=== PATIENT | female | born 1975 | race Two or more races ===

== ENCOUNTER 2019-04-07 16:55 | Inpatient (IN) | payer SELFPAY ==
[2019-04-07] MEDS ORDERED: Nalbuphine 10 MG/1 ML Vial IVPUSH PRN (17:49)
[2019-04-07] MEDS ORDERED: Lidocaine 1% 50 ML MDV INJECT ONE (17:49)
[2019-04-07] MEDS ORDERED: Sodium Chloride 0.9% 10 ML Syringe FLUSH PRN (17:49)
[2019-04-07] MEDS ORDERED: Oxytocin/Lactated Ringers 10 UNIT/1,000 ML BAG IV SCH ×2 (18:00)
[2019-04-07] MEDS ORDERED: Lactated Ringers 1,000 ML ONE (18:11)
[2019-04-07] MEDS ORDERED: Ampicillin 2 GM in Sodium Chloride 0.9% 100 ML IV ONE (18:30)
[2019-04-07] MEDS: Lactated Ringers 1,000 ML IV SCH ×2 (19:54→23:32)
--- NOTE | 2019-04-07 20:24 | PCM.LDHP ---
<Miranda Hylton - Last Filed: 04/07/19 21:40> L&D History of Present Illness - General Date of Service: 04/07/19 Admit Problem/Dx: Patient Status Order with Admit Dx/Problem 04/07/19 17:30 Patient Status [ADT] Routine Admission Diagnosis/Problem Admission Diagnosis/Problem Source of Information: Patient, Family History Limitations: Reports: No Limitations, Language Barrier - History of Present Illness Introduction:: Patient is a Welsh speaking 44 year old O+ GBS + at 39-1 weeks gestational age with no active medical conditions and normal course who presents today for evaluation of vaginal bleeding. Patient noted some bleeding this afternoon, and used a pad, which did not soak through. However, she did note that when she went to the bathroom there was more blood. She has mild contractions that she notes are every 20 minutes apart. She also reports that she had some blurry vision while walking into the hospital, but this has occurred intermittently throughout her . She denies any headaches and reports no current changes in her vision. AGGIE is 03/14/19 based on LMP of 07/07/18 and ultrasounds done on 11/19/18. Prior to menstrual cycles were regular. Initial lab work on 09/18/18 demonstrated negative antibody screen, positive Rubella IgG, nonreactive Syphilis screen, nonreactive HBsAg, negative HIV screen and negative gonorrhea and chlamydia screen. Pap smear was normal with shift in josé miguel suggestive of bacterial vaginosis. Initial lab work on 09/18/18 demonstrated platelets of 286, 000, Hemoglobin of 14.2 g/dL and hematocrit of 40.9%. Subsequent lab work on 07/21 demonstrated platelets of 243,000 and hemoglobin of 12.2 g/dL. 1 hour GTT was elevated at 192, with subsequent 3 hour glucose of 120, 106 and 63 at 1,2 and 3 hours and a fasting glucose of 84. GBS screen was positive on 03/19/19. US on 11/19/18 demonstrated mejia IUP with anterior placenta with probable complete previa. Patient received her tetanus and flu vaccine on 02/12/19. Her blood pressure remained within normal limits during her . Weight gain was approximately 17 pounds, from 156 lbs to 173 lbs. She did note some constipation during her , which was managed with psyllium. Previous was uncomplicated with vaginal delivery of a healthy male term on 11/22/1998. The patient did not have pain management during labor. Patient does intend to breast feed and is considering if she would like an epidural or other pain management during labor. 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: 1 Other OB/BYN History: Previous of healthy term male infant on 11/22/1998 - Past Surgical History HEENT Surgical History: Reports: Other (See Below) Other HEENT Surgeries/Procedures: wears glasses but didn't bring along to hospital Social & Family History - Family History Family Medical History: Noncontributory Cardiac: Reports: Other (See Below) (CVA Father) Endocrine/Metabolic: Reports: Diabetes, type II (Father) - Tobacco Use Smoking Status *Q: Never Smoker Second Hand Smoke Exposure: No - Tobacco Core Measures Tobacco Use/Smoking Within Last 30 Days: No - Alcohol Use Alcohol Use in Last Twelve Months: No - Recreational Drug Use Recreational Drug Use: No - Living Situation & Occupation Living situation: Reports: ( Daljit) Occupation: Unemployed H&P Review of Systems - Review of Systems: Review Of Systems: See Below General: Reports: No Symptoms HEENT: Reports: No Symptoms Pulmonary: Reports: No Symptoms Cardiovascular: Reports: No Symptoms Gastrointestinal: Reports: Constipation Genitourinary: Reports: No Symptoms Musculoskeletal: Reports: No Symptoms Skin: Reports: No Symptoms Psychiatric: Reports: No Symptoms Neurological: Reports: No Symptoms L&D Exam - Exam Exam: See Below - Vital Signs Vital Signs: Last Vital Signs Temp 98.3 F 04/07/19 17:49 Pulse 78 04/07/19 17:49 Resp 14 04/07/19 17:49 BP 119/60 04/07/19 17:49 Pulse Ox Weight: 80.286 kg - OB Specific Contraction Frequency (min): 20 Contraction Intensity: Mild Movement: Active Heart Tones: Present Presentation: Vertex - Espinal Score Espinal Score Cervix Position: Posterior Espinal Score Effacement: 51-70% Espinal Score Dilation: 1-2 cm - Exam General: Alert, Oriented HEENT: Conjunctiva Clear, EOMI, Hearing Intact, Nares Patent Neck: Supple, Trachea Midline Lungs: Clear to Auscultation, Normal Respiratory Effort Cardiovascular: Regular Rate, Regular Rhythm GI/Abdominal Exam: Normal Bowel Sounds, Soft Back Exam: Normal Inspection Extremities: Normal Inspection, Non-Tender, No Pedal Edema Skin: Warm, Dry, Intact DTR: 1+: Patella (L), Patella (R) Psychiatric: Alert, Normal Affect, Normal Mood - Patient Data Lab Results Last 24 hrs: Laboratory Results - last 24 hr 04/07/19 Range/Units 18:10 WBC 13.65 H (3.98-10.04) K/mm3 RBC 3.79 L (3.98-5.22) M/mm3 Hgb 11.6 (11.2-15.7) gm/dl Hct 33.8 L (34.1-44.9) % MCV 89.2 (79.4-94.8) fl MCH 30.6 (25.6-32.2) pg MCHC 34.3 (32.2-35.5) g/dl RDW Std Deviation 41.8 (36.4-46.3) fL Plt Count 205 (182-369) K/mm3 MPV 10.3 (9.4-12.3) fl Neut % (Auto) 76.6 H (34.0-71.1) % Lymph % (Auto) 13.8 L (19.3-51.7) % [place] % (Auto) 9.3 (4.7-12.5) % Eos % (Auto) 0.2 L (0.7-5.8) Baso % (Auto) 0.1 (0.1-1.2) % Neut # (Auto) 10.44 H (1.56-6.13) K/mm3 Lymph # (Auto) 1.89 (1.18-3.74) K/mm3 [place] # (Auto) 1.27 H (0.24-0.36) K/mm3 Eos # (Auto) 0.03 L (0.04-0.36) K/mm3 Baso # (Auto) 0.02 (0.01-0.08) K/mm3 Manual Slide Review Abnormal smear Result Diagrams: 04/07/19 18:10 - Problem List (1) with 39 completed weeks gestation SNOMED Code(s): 73074546 ICD Code: Z3A.39 - 39 WEEKS GESTATION OF Status: Acute Current Visit: Yes Problem List Initiated/Reviewed/Updated: Yes Orders Last 24hrs: Active Orders 24 hr Category Date Time Status Patient Status [ADT] Routine ADT 04/07/19 17:30 Active Activity as Tolerated [RC] PFP Care 04/07/19 17:49 Active Communication Order [RC] ASDIRECTED Care 04/07/19 17:49 Active Heart Tones [RC] ASDIRECTED Care 04/07/19 17:50 Active Non Stress Test [RC] PER UNIT ROUTINE Care 04/07/19 17:49 Active Notify Provider [RC] PFP Care 04/07/19 17:49 Active Notify Provider [RC] PRN Care 04/07/19 17:49 Active Peripheral IV Care [RC] . DIRECTED Care 04/07/19 17:50 Active Pump Management, Intrathecal [RC] ASDIRECTED Care 04/07/19 17:51 Active Urinary Catheter Assessment [RC] ASDIRECTED Care 04/07/19 17:49 Active Vital Signs [RC] PER UNIT ROUTINE Care 04/07/19 17:49 Active Regular Diet [DIET] Diet 04/07/19 Dinner Active RAPID PLASMA REAGIN,RPR [CHEM] Routine Lab 04/07/19 18:10 Received TYPE AND SCREEN [BBK] Stat Lab 04/07/19 18:10 Received Ampicillin 1 gm Med 04/07/19 22:30 Active Sodium Chloride 0.9% [Normal Saline] 100 ml IV Q4H Lactated Ringers [Ringers, Lactated] 1,000 ml Med 04/07/19 18:00 Active IV ASDIRECTED Nalbuphine [Nubain] Med 04/07/19 17:49 Active 10 mg IVPUSH Q2H PRN Oxytocin/Lactated Ringers [Pitocin in LR 10 Units/1,000 Med 04/07/19 18:00 Active ML] 10 unit in 1,000 ml IV .CONTINUOUS Oxytocin/Lactated Ringers [Pitocin in LR 10 Units/1,000 Med 04/07/19 18:00 Active ML] 10 unit in 1,000 ml IV TITRATE Sodium Chloride 0.9% [Saline Flush] Med 04/07/19 17:49 Active 10 ml FLUSH ASDIRECTED PRN Electronic Heart Tones Ext w TOCO [WOMSER] Oth 04/07/19 17:49 Ordered Routine Electronic Heart Tones Internal [WOMSER] Per Unit Oth 04/07/19 17:49 Ordered Routine Peripheral IV Insertion Adult [OM.PC] Routine Oth 04/07/19 17:49 Ordered Resuscitation Status Routine Resus Stat 04/07/19 17:49 Ordered Medication Orders Ampicillin Sodium 1 gm/ Sodium (Chloride) 100 mls @ 200 mls/hr IV Q4H BRITNEY Lactated Ringer's (Ringers, Lactated) 1,000 mls @ 100 mls/hr IV ASDIRECTED BRITNEY Last Admin: 04/07/19 19:54 Dose: 100 mls/hr Oxytocin/Lactated Ringer's (Pitocin In Lr 10 Units/1,000 Ml) 10 unit in 1,000 mls @ 12 mls/hr IV TITRATE BRITNEY; Protocol Oxytocin/Lactated Ringer's (Pitocin In Lr 10 Units/1,000 Ml) 10 unit in 1,000 mls @ 500 mls/hr IV .CONTINUOUS BRITNEY Nalbuphine HCl (Nubain) 10 mg IVPUSH Q2H PRN PRN Reason: Pain Sodium Chloride (Saline Flush) 10 ml FLUSH ASDIRECTED PRN PRN Reason: Keep Vein Open Assessment/Plan Comment:: Assessment: * 44 year old Welsh speaking O+ GBS+ female with no active medical conditions and uncomplicated course who presents for mild vaginal bleeding and contractions. Plan: * Antibiotics for GBS+ * Continue to monitor patient * Augment with Pitocin if indicated * Patient is considering if she would like an epidural at this time. <Jennifer Vang - Last Filed: 04/08/19 00:45> L&D History of Present Illness - General Admit Problem/Dx: Patient Status Order with Admit Dx/Problem 04/07/19 17:30 Patient Status [ADT] Routine Admission Diagnosis/Problem Admission Diagnosis/Problem L&D Exam - Vital Signs Vital Signs: Last Vital Signs Temp 36.8 C 04/07/19 17:49 Pulse 78 04/07/19 17:49 Resp 14 04/07/19 17:49 BP 119/60 04/07/19 17:49 Pulse Ox - Patient Data Lab Results Last 24 hrs: Laboratory Results - last 24 hr 04/07/19 04/07/19 Range/Units 18:10 18:10 WBC 13.65 H (3.98-10.04) K/mm3 RBC 3.79 L (3.98-5.22) M/mm3 Hgb 11.6 (11.2-15.7) gm/dl Hct 33.8 L (34.1-44.9) % MCV 89.2 (79.4-94.8) fl MCH 30.6 (25.6-32.2) pg MCHC 34.3 (32.2-35.5) g/dl RDW Std Deviation 41.8 (36.4-46.3) fL Plt Count 205 (182-369) K/mm3 MPV 10.3 (9.4-12.3) fl Neut % (Auto) 76.6 H (34.0-71.1) % Lymph % (Auto) 13.8 L (19.3-51.7) % [place] % (Auto) 9.3 (4.7-12.5) % Eos % (Auto) 0.2 L (0.7-5.8) Baso % (Auto) 0.1 (0.1-1.2) % Neut # (Auto) 10.44 H (1.56-6.13) K/mm3 Lymph # (Auto) 1.89 (1.18-3.74) K/mm3 [place] # (Auto) 1.27 H (0.24-0.36) K/mm3 Eos # (Auto) 0.03 L (0.04-0.36) K/mm3 Baso # (Auto) 0.02 (0.01-0.08) K/mm3 Manual Slide Review Abnormal smear Blood Type O POSITIVE Gel Antibody Screen Negative Result Diagrams: 04/07/19 18:10 Orders Last 24hrs: Active Orders 24 hr Category Date Time Status Patient Status [ADT] Routine ADT 04/07/19 17:30 Active Activity as Tolerated [RC] PFP Care 04/07/19 17:49 Active Communication Order [RC] ASDIRECTED Care 04/07/19 17:49 Active Heart Tones [RC] ASDIRECTED Care 04/07/19 17:50 Active Non Stress Test [RC] PER UNIT ROUTINE Care 04/07/19 17:49 Active Notify Provider [RC] PFP Care 04/07/19 17:49 Active Notify Provider [RC] PRN Care 04/07/19 17:49 Active Peripheral IV Care [RC] . DIRECTED Care 04/07/19 17:50 Active Pump Management, Intrathecal [RC] ASDIRECTED Care 04/07/19 17:51 Active Urinary Catheter Assessment [RC] ASDIRECTED Care 04/07/19 17:49 Active Vital Signs [RC] PER UNIT ROUTINE Care 04/07/19 17:49 Active Regular Diet [DIET] Diet 04/07/19 Dinner Active OB Ltd 1 or More Fetus [US] Routine Exams 04/07/19 22:12 Taken RAPID PLASMA REAGIN,RPR [CHEM] Routine Lab 04/07/19 18:10 Received Ampicillin 1 gm Med 04/07/19 22:30 Active Sodium Chloride 0.9% [Normal Saline] 100 ml IV Q4H Lactated Ringers [Ringers, Lactated] 1,000 ml Med 04/07/19 18:00 Active IV ASDIRECTED Nalbuphine [Nubain] Med 04/07/19 17:49 Active 10 mg IVPUSH Q2H PRN Oxytocin/Lactated Ringers [Pitocin in LR 10 Units/1,000 Med 04/07/19 18:00 Active ML] 10 unit in 1,000 ml IV .CONTINUOUS Oxytocin/Lactated Ringers [Pitocin in LR 10 Units/1,000 Med 04/07/19 18:00 Active ML] 10 unit in 1,000 ml IV TITRATE Sodium Chloride 0.9% [Saline Flush] Med 04/07/19 17:49 Active 10 ml FLUSH ASDIRECTED PRN Electronic Heart Tones Ext w TOCO [WOMSER] Oth 04/07/19 17:49 Ordered Routine Electronic Heart Tones Internal [WOMSER] Per Unit Oth 04/07/19 17:49 Ordered Routine Peripheral IV Insertion Adult [OM.PC] Routine Oth 04/07/19 17:49 Ordered Resuscitation Status Routine Resus Stat 04/07/19 17:49 Ordered Medication Orders Ampicillin Sodium 1 gm/ Sodium (Chloride) 100 mls @ 200 mls/hr IV Q4H BRITNEY Last Admin: 04/07/19 23:33 Dose: 200 mls/hr Lactated Ringer's (Ringers, Lactated) 1,000 mls @ 100 mls/hr IV ASDIRECTED BRITNEY Last Admin: 04/07/19 23:32 Dose: 100 mls/hr Infusion: 04/07/19 23:32 Dose: 100 mls/hr Admin: 04/07/19 19:54 Dose: 100 mls/hr Oxytocin/Lactated Ringer's (Pitocin In Lr 10 Units/1,000 Ml) 10 unit in 1,000 mls @ 12 mls/hr IV TITRATE BRITNEY; Protocol Oxytocin/Lactated Ringer's (Pitocin In Lr 10 Units/1,000 Ml) 10 unit in 1,000 mls @ 500 mls/hr IV .CONTINUOUS BRITNEY Nalbuphine HCl (Nubain) 10 mg IVPUSH Q2H PRN PRN Reason: Pain Sodium Chloride (Saline Flush) 10 ml FLUSH ASDIRECTED PRN PRN Reason: Keep Vein Open Assessment/Plan Comment:: Ultrasound reveals normal placenta. No previa. After labor for about 2 hours with minimal cervical change, repeatative late decelerations and thick meconium decision to proceed with section
[2019-04-07] MEDS ORDERED: Ampicillin 1 GM in Sodium Chloride 0.9% 100 ML IV SCH (22:30)
[2019-04-08] MEDS ORDERED: Nalbuphine 10 MG/1 ML Vial IVPUSH PRN (00:46)
[2019-04-08] MEDS ORDERED: Citric Acid/Sodium Citrate Solution 30 ML Cup PO ONE (00:46)
[2019-04-08] MEDS ORDERED: Sodium Chloride 0.9% 10 ML Syringe FLUSH PRN (00:46)
[2019-04-08] MEDS ORDERED: Metoclopramide 10 MG/2 ML SDV IVPUSH ONE (00:46)
[2019-04-08] MEDS ORDERED: Morphine PF 10 MG/10 ML SDV ONE (00:47)
[2019-04-08] MEDS ORDERED: ceFAZolin 1 GM Vial ONE (00:51)
[2019-04-08] MEDS ORDERED: Oxytocin 10 Units/1 ML SDV ONE (00:51)
[2019-04-08] MEDS ORDERED: Bupivacaine 0.5% 30 ML SDV ONE (00:54)
[2019-04-08] MEDS ORDERED: Lactated Ringers 1,000 ML IV SCH (01:00)
[2019-04-08] MEDS ORDERED: fentaNYL 100 MCG/2 ML SDV ONE (01:42)
--- NOTE | 2019-04-08 01:59 | PCM.OPNOTE ---
- General Post-Op/Procedure Note Date of Surgery/Procedure: 04/08/19 Operative Procedure(s): primary section Findings: Viable male, weight 7#10 oz, 8/8 APGARS at 0120. Thick meconium. Normal uterus tubes and ovaries Pre Op Diagnosis: non-reassuring heart tones Post-Op Diagnosis: Same Anesthesia Technique: Spinal Primary Surgeon: Jennifer Vang Cafeteria Aide: Chester Manley Role of Cafeteria Aide: patient safety, speed of surgery Fluid Replacement, Intraop: 1,600 Output, Urine Amount: 150 EBL in mLs: 600 Complications: None Condition: Good Free Text/Narrative:: The patient was taken to the operating room where spinal anesthesia was dosed to surgical levels without difficulty. The patient was prepped and draped in the usual sterile fashion in the dorsal supine position with a leftward tilt. A Pfannenstiel skin incision was made with the scalpel and carried through to the underlying layer of fascia. The fascia was incised in the midline and extended laterally using Shearer scissors. Jolly clamps were used to elevate the superior aspect of the fascial incision, which was elevated, and the underlying rectus muscles were dissected off bluntly and using Shearer scissors. Attention was then turned to the inferior aspect of the fascial incision, which in similar fashion was grasped with Jolly clamps, elevated, and the underlying rectus muscles were dissected off bluntly and using the shearer. The rectus muscles were dissected in the midline. The peritoneum was entered bluntly; this incision was extended superiorly and inferiorly with good visualization of the bladder. The bladder blade was inserted. The vesicouterine peritoneum was identified and entered sharply using Metzenbaum scissors. This incision was extended laterally and the bladder flap was created digitally. The bladder blade was reinserted. The lower uterine segment was incised in a transverse fashion using the scalpel and with digital traction. Clear fluid was noted. The infant was subsequently delivered by flexing the head to the incision. Body and shoulders followed without difficulty. The cord was clamped and cut. 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 The placenta was delivered spontaneously intact with a three-vessel cord noted. The uterus was exteriorized and cleared of all clots and debris. The uterine incision was repaired in 2 layers using 0 monocryl. Hemostasis was visualized. Hemostasis was visualized bilaterally. The uterus was returned to the abdomen. The uterine incision was reexamined and it was noted to be hemostatic. The pelvis was copiously irrigated. The fascia was closed with 1 PDS suture, and the skin was closed with 3-0 monocryl. Sponge, lap, and instrument counts were correct x2. The patient was stable at the completion of the procedure and was subsequently transferred to the recovery room in stable condition.
--- NOTE | 2019-04-08 02:00 | PCM.PREANE ---
Preanesthetic Assessment - Anesthesia/Transfusion/Family Hx Anesthesia History: No Prior Anesthesia Transfusion History: No Prior Transfusion(s) Anesthesia/Transfusion Comment: Language barrier preventing thorough assessment of history. Assured from physician that she is "otherwise healthy." - Review of Systems General: No Symptoms Pulmonary: No Symptoms Cardiovascular: No Symptoms Gastrointestinal: No Symptoms Neurological: No Symptoms Other: Reports: None - Physical Assessment NPO Status Date: 04/07/19 (Presumed full stomach) Vital Signs: Last Vital Signs Temp 36.8 C 04/07/19 17:49 Pulse 78 04/07/19 17:49 Resp 14 04/07/19 17:49 BP 119/60 04/07/19 17:49 Pulse Ox Height: 5 ft 2 in Weight: 80.286 kg ASA Class: 1E Mental Status: Alert & Oriented x3 Dentition: Reports: Normal Dentition ROM/Head Extension: Full Lungs: Clear to Auscultation, Normal Respiratory Effort Cardiovascular: Regular Rate, Regular Rhythm - Lab Values: Laboratory Last Values WBC 13.65 K/mm3 (3.98-10.04) H 04/07/19 18:10 RBC 3.79 M/mm3 (3.98-5.22) L 04/07/19 18:10 Hgb 11.6 gm/dl (11.2-15.7) 04/07/19 18:10 Hct 33.8 % (34.1-44.9) L 04/07/19 18:10 MCV 89.2 fl (79.4-94.8) 04/07/19 18:10 MCH 30.6 pg (25.6-32.2) 04/07/19 18:10 MCHC 34.3 g/dl (32.2-35.5) 04/07/19 18:10 RDW Std Deviation 41.8 fL (36.4-46.3) 04/07/19 18:10 Plt Count 205 K/mm3 (182-369) 04/07/19 18:10 MPV 10.3 fl (9.4-12.3) 04/07/19 18:10 Neut % (Auto) 76.6 % (34.0-71.1) H 04/07/19 18:10 Lymph % (Auto) 13.8 % (19.3-51.7) L 04/07/19 18:10 [place] % (Auto) 9.3 % (4.7-12.5) 04/07/19 18:10 Eos % (Auto) 0.2 (0.7-5.8) L 04/07/19 18:10 Baso % (Auto) 0.1 % (0.1-1.2) 04/07/19 18:10 Neut # (Auto) 10.44 K/mm3 (1.56-6.13) H 04/07/19 18:10 Lymph # (Auto) 1.89 K/mm3 (1.18-3.74) 04/07/19 18:10 [place] # (Auto) 1.27 K/mm3 (0.24-0.36) H 04/07/19 18:10 Eos # (Auto) 0.03 K/mm3 (0.04-0.36) L 04/07/19 18:10 Baso # (Auto) 0.02 K/mm3 (0.01-0.08) 04/07/19 18:10 Manual Slide Review Abnormal smear 04/07/19 18:10 Blood Type O POSITIVE 04/07/19 18:10 Gel Antibody Screen Negative 04/07/19 18:10 - Allergies Allergies/Adverse Reactions: Allergies Allergy/AdvReac Type Severity Reaction Status Date / Time No Known Allergies Allergy Verified 04/07/19 17:47 - Blood Blood Available: Yes - Acknowledgements Anesthesia Type Planned: Spinal Pt an Appropriate Candidate for the Planned Anesthesia: Yes Alternatives and Risks of Anesthesia Discussed w Pt/Guardian: Yes Pt/Guardian Understands and Agrees with Anesthesia Plan: Yes PreAnesthesia Questionnaire 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: Reports: Other OB/BYN History: Previous of healthy term male infant on 11/22/1998 - Past Surgical History HEENT Surgical History: Reports: Other (See Below) Other HEENT Surgeries/Procedures: wears glasses but didn't bring along to hospital - SUBSTANCE USE Smoking Status *Q: Never Smoker Second Hand Smoke Exposure: No Recreational Drug Use History: No - HOME MEDS Home Medications: Home Meds Mv-Mn/Iron/FA/Herbal/Digestive [ One Tablet] 1 each PO DAILY 04/07/19 [ History] - CURRENT (IN HOUSE) MEDS Current Meds: Current Medications Ampicillin Sodium 1 gm/ Sodium (Chloride) 100 mls @ 200 mls/hr IV Q4H BRITNEY Last Admin: 04/07/19 23:33 Dose: 200 mls/hr Lactated Ringer's (Ringers, Lactated) 1,000 mls @ 100 mls/hr IV ASDIRECTED BRITNEY Last Admin: 04/07/19 23:32 Dose: 100 mls/hr Oxytocin/Lactated Ringer's (Pitocin In Lr 10 Units/1,000 Ml) 10 unit in 1,000 mls @ 12 mls/hr IV TITRATE BRITNEY; Protocol Oxytocin/Lactated Ringer's (Pitocin In Lr 10 Units/1,000 Ml) 10 unit in 1,000 mls @ 500 mls/hr IV .CONTINUOUS BRITNEY Lactated Ringer's (Ringers, Lactated) 1,000 mls @ 125 mls/hr IV ASDIRECTED BRITNEY Nalbuphine HCl (Nubain) 10 mg IVPUSH Q2H PRN PRN Reason: Pain Nalbuphine HCl (Nubain) 10 mg IVPUSH Q2H PRN PRN Reason: Pain Sodium Chloride (Saline Flush) 10 ml FLUSH ASDIRECTED PRN PRN Reason: Keep Vein Open Sodium Chloride (Saline Flush) 10 ml FLUSH ASDIRECTED PRN PRN Reason: Keep Vein Open Discontinued Medications Bupivacaine HCl (Marcaine 0.5%) Confirm Administered Dose 30 ml .ROUTE .STK-MED ONE Stop: 04/08/19 00:55 Cefazolin Sodium (Ancef) Confirm Administered Dose 2 gm .ROUTE .STK-MED ONE Stop: 04/08/19 00:52 Citric Acid/Sodium Citrate (Bicitra Solution) 30 ml PO ONETIME ONE Stop: 04/08/19 00:47 Fentanyl (Sublimaze) Confirm Administered Dose 100 mcg .ROUTE .STK-MED ONE Stop: 04/08/19 01:43 Ampicillin Sodium 2 gm/ Sodium (Chloride) 100 mls @ 200 mls/hr IV ONETIME ONE Stop: 04/07/19 18:59 Last Admin: 04/07/19 19:02 Dose: 200 mls/hr Lactated Ringer's (Ringers, Lactated) Confirm Administered Dose 1,000 mls @ as directed .ROUTE .STK-MED ONE Stop: 04/07/19 18:12 Lidocaine HCl (Xylocaine 1%) 1 ml INJECT ONETIME ONE Stop: 04/07/19 17:50 Metoclopramide HCl (Reglan) 10 mg IVPUSH ONETIME ONE Stop: 04/08/19 00:47 Morphine Sulfate (Duramorph Pf) Confirm Administered Dose 10 mg .ROUTE .STK-MED ONE Stop: 04/08/19 00:48 Oxytocin (Pitocin) Confirm Administered Dose 20 unit .ROUTE .STK-MED ONE Stop: 04/08/19 00:52
--- NOTE | 2019-04-08 02:02 | PCM.POSTAN ---
POST ANESTHESIA ASSESSMENT - MENTAL STATUS Mental Status: Alert, Oriented - VITAL SIGNS Vital Signs: Last Vital Signs Temp 36.8 C 04/07/19 17:49 Pulse 78 04/07/19 17:49 Resp 14 04/07/19 17:49 BP 119/60 04/07/19 17:49 Pulse Ox - RESPIRATORY Respiratory Status: Respiratory Rate WNL, Airway Patent, O2 Saturation Stable - CARDIOVASCULAR CV Status: Pulse Rate WNL, Blood Pressure Stable - GASTROINTESTINAL GI Status: No Symptoms - PAIN Pain Score: 0 - POST OP HYDRATION Hydration Status: Adequate & Stable - OBSERVATIONS Free Text/Narrative:: Routine transfer to PACU with handoff to nursing. VSS, SV, MUE, FAC, CTAB. No complications.
[2019-04-08] MEDS ORDERED: diphenhydrAMINE 50 MG/ML SDV IVPUSH PRN ×2 (03:41→05:14)
[2019-04-08] MEDS ORDERED: fentaNYL 100 MCG/2 ML SDV IVPUSH PRN (03:41)
[2019-04-08] MEDS ORDERED: Ondansetron 4 MG/2 ML SDV IVPUSH PRN (03:41)
[2019-04-08] MEDS ORDERED: Naloxone 0.4 MG/ML SDV IVPUSH PRN (05:14)
[2019-04-08] MEDS ORDERED: ePHEDrine 50 MG/ML SDV IVPUSH PRN (05:14)
[2019-04-08] MEDS ORDERED: Dextrose 5%-Lactated Ringers 1,000 ML IV SCH (05:14)
--- NOTE | 2019-04-08 07:35 | PCM48HPAN ---
Post Anesthesia Note - EVALUATION WITHIN 48HRS OF ANESTHETIC Vital Signs in Normal Range: Yes Patient Participated in Evaluation: Yes Respiratory Function Stable: Yes Airway Patent: Yes Cardiovascular Function Stable: Yes Hydration Status Stable: Yes Pain Control Satisfactory: Yes Nausea and Vomiting Control Satisfactory: Yes Mental Status Recovered: Yes Vital Signs: Last Vital Signs Temp 36.3 C 04/08/19 02:30 Pulse 70 04/08/19 02:30 Resp 18 04/08/19 02:30 BP 110/60 04/08/19 02:30 Pulse Ox 95 04/08/19 02:30 - COMMENTS/OBSERVATIONS Free Text/Narrative:: no anesthesia complications noted
[2019-04-08] MEDS ORDERED: Ketorolac 30 MG/ML SDV ONE ×3 (10:07→16:37)
--- NOTE | 2019-04-08 13:11 | PCM.PNPP ---
- General Info Date of Service: 04/08/19 Admission Dx/Problem (Free Text): Patient Status Order with Admit Dx/Problem 04/07/19 17:30 Patient Status [ADT] Routine Admission Diagnosis/Problem Admission Diagnosis/Problem Subjective Update: Patient is day of surgery for unplanned of a 39-1 gestational age male . Patient is doing well. She has been able to be up and walk around. She does note that she has a Mendez in place so she has not needed to use the bathroom. She has not had to move her bowels yet day. She denies any nausea or vomiting. She reports that she has had minimal pain and some vaginal bleeding. She denies any headaches or changes in vision. She did attempt to breastfeed but she reports that there was very minimal milk production. She is wondering what she can do it increase milk production. She also is wondering about cleaning the incision site. Functional Status: Reports: Pain Controlled, Tolerating Diet, Ambulating - Review of Systems General: Reports: No Symptoms HEENT: Reports: No Symptoms Pulmonary: Reports: No Symptoms Cardiovascular: Reports: No Symptoms Gastrointestinal: Reports: No Symptoms Genitourinary: Reports: No Symptoms Musculoskeletal: Reports: No Symptoms Neurological: Reports: No Symptoms Psychiatric: Reports: No Symptoms - General Info Date of Service: 04/08/19 - Patient Data Vital Signs - Most Recent: Last Vital Signs Temp 98.8 F 04/08/19 11:59 Pulse 71 04/08/19 12:02 Resp 18 04/08/19 11:59 BP 100/55 L 04/08/19 12:00 Pulse Ox 100 04/08/19 12:02 Weight - Most Recent: 80.286 kg I&O - Last 24 Hours: Intake & Output 04/07/19 04/08/19 04/08/19 22:59 06:59 14:59 Intake Total 1800 180 Output Total 340 250 Balance 1460 -70 Lab Results - Last 24 Hours: Laboratory Results - last 24 hr 04/07/19 04/07/19 Range/Units 18:10 18:10 WBC 13.65 H (3.98-10.04) K/mm3 RBC 3.79 L (3.98-5.22) M/mm3 Hgb 11.6 (11.2-15.7) gm/dl Hct 33.8 L (34.1-44.9) % MCV 89.2 (79.4-94.8) fl MCH 30.6 (25.6-32.2) pg MCHC 34.3 (32.2-35.5) g/dl RDW Std Deviation 41.8 (36.4-46.3) fL Plt Count 205 (182-369) K/mm3 MPV 10.3 (9.4-12.3) fl Neut % (Auto) 76.6 H (34.0-71.1) % Lymph % (Auto) 13.8 L (19.3-51.7) % [place] % (Auto) 9.3 (4.7-12.5) % Eos % (Auto) 0.2 L (0.7-5.8) Baso % (Auto) 0.1 (0.1-1.2) % Neut # (Auto) 10.44 H (1.56-6.13) K/mm3 Lymph # (Auto) 1.89 (1.18-3.74) K/mm3 [place] # (Auto) 1.27 H (0.24-0.36) K/mm3 Eos # (Auto) 0.03 L (0.04-0.36) K/mm3 Baso # (Auto) 0.02 (0.01-0.08) K/mm3 Manual Slide Review Abnormal smear Blood Type O POSITIVE Gel Antibody Screen Negative Med Orders - Current: Current Medications Diphenhydramine HCl (Benadryl) 25 mg IVPUSH Q6H PRN PRN Reason: Pruritis Diphenhydramine HCl (Benadryl) 25 mg IVPUSH Q6H PRN PRN Reason: Itching or Nausea Ephedrine Sulfate (Ephedrine Sulfate) 5 mg IVPUSH SEECOMMENT PRN PRN Reason: Other Fentanyl (Sublimaze) 50 mcg IVPUSH Q5M PRN PRN Reason: Pain Dextrose/Lactated Ringer's (Dextrose 5%-Lactated Ringers) 1,000 mls @ 125 mls/ hr IV ASDIRECTED [facility] Stop: 04/08/19 13:13 Last Infusion: 04/08/19 12:34 Dose: Infused Ibuprofen (Motrin) 600 mg PO Q6H PRN PRN Reason: mild pain or fever Naloxone HCl (Narcan) 0.1 mg IVPUSH SEECOMMENT PRN PRN Reason: Respiratory Depression Ondansetron HCl (Zofran) 4 mg IVPUSH ONETIME PRN PRN Reason: Nausea/Vomiting Oxycodone/Acetaminophen (Percocet 325-5 Mg) 2 tab PO Q6H PRN PRN Reason: Pain (moderate 4-6) Discontinued Medications Bupivacaine HCl (Marcaine 0.5%) Confirm Administered Dose 30 ml .ROUTE .STK-MED ONE Stop: 04/08/19 00:55 Last Admin: 04/08/19 01:16 Dose: 20 ml Cefazolin Sodium (Ancef) Confirm Administered Dose 2 gm .ROUTE .STK-MED ONE Stop: 04/08/19 00:52 Citric Acid/Sodium Citrate (Bicitra Solution) 30 ml PO ONETIME ONE Stop: 04/08/19 00:47 Fentanyl (Sublimaze) Confirm Administered Dose 100 mcg .ROUTE .STK-MED ONE Stop: 04/08/19 01:43 Ampicillin Sodium 2 gm/ Sodium (Chloride) 100 mls @ 200 mls/hr IV ONETIME ONE Stop: 04/07/19 18:59 Last Admin: 04/07/19 19:02 Dose: 200 mls/hr Ampicillin Sodium 1 gm/ Sodium (Chloride) 100 mls @ 200 mls/hr IV Q4H [facility] Last Admin: 04/07/19 23:33 Dose: 200 mls/hr Lactated Ringer's (Ringers, Lactated) 1,000 mls @ 100 mls/hr IV ASDIRECTED [facility] Last Admin: 04/07/19 23:32 Dose: 100 mls/hr Oxytocin/Lactated Ringer's (Pitocin In Lr 10 Units/1,000 Ml) 10 unit in 1,000 mls @ 12 mls/hr IV TITRATE [facility]NEY; Protocol Oxytocin/Lactated Ringer's (Pitocin In Lr 10 Units/1,000 Ml) 10 unit in 1,000 mls @ 500 mls/hr IV .CONTINUOUS [facility] Lactated Ringer's (Ringers, Lactated) Confirm Administered Dose 1,000 mls @ as directed .ROUTE .STK-MED ONE Stop: 04/07/19 18:12 Lactated Ringer's (Ringers, Lactated) 1,000 mls @ 125 mls/hr IV ASDIRECTED [facility] Ketorolac Tromethamine (Toradol) Confirm Administered Dose 30 mg .ROUTE .STK- MED ONE Stop: 04/08/19 10:08 Last Admin: 04/08/19 11:11 Dose: 30 mg Ketorolac Tromethamine (Toradol) Confirm Administered Dose 30 mg .ROUTE .STK- MED ONE Stop: 04/08/19 11:10 Last Admin: 04/08/19 11:16 Dose: Not Given Lidocaine HCl (Xylocaine 1%) 1 ml INJECT ONETIME ONE Stop: 04/07/19 17:50 Metoclopramide HCl (Reglan) 10 mg IVPUSH ONETIME ONE Stop: 04/08/19 00:47 Morphine Sulfate (Duramorph Pf) Confirm Administered Dose 10 mg .ROUTE .STK-MED ONE Stop: 04/08/19 00:48 Nalbuphine HCl (Nubain) 10 mg IVPUSH Q2H PRN PRN Reason: Pain Nalbuphine HCl (Nubain) 10 mg IVPUSH Q2H PRN PRN Reason: Pain Oxytocin (Pitocin) Confirm Administered Dose 20 unit .ROUTE .STK-MED ONE Stop: 04/08/19 00:52 Sodium Chloride (Saline Flush) 10 ml FLUSH ASDIRECTED PRN PRN Reason: Keep Vein Open Sodium Chloride (Saline Flush) 10 ml FLUSH ASDIRECTED PRN PRN Reason: Keep Vein Open - Infant Interaction Infant Disposition, : [place] to Nursery Infant Interaction: Not Applicable Feeding: Attempted ; Nursed Fair/Poor, Encouraged to Breastfeed Support Person: - Recovery Exam Fundal Tone: Firm Fundal Level: At Umbilicus Fundal Placement: Midline Lochia Amount: Scant, Small Lochia Color: Rubra/Red Perineum Description: Intact, Minimal Bruising/Swelling Episiotomy/Laceration: None Bladder Status: Indwelling Catheter in Place Urinary Elimination: Indwelling Catheter - Exam General: Alert, Oriented HEENT: Pupils Equal, EOMI Lungs: Clear to Auscultation, Normal Respiratory Effort Cardiovascular: Regular Rate, Regular Rhythm GI/Abdominal Exam: Normal Bowel Sounds, Soft, Tender (mildly tender) Extremities: Normal Inspection, Non-Tender, No Pedal Edema, Normal Capillary Refill Skin: Warm, Dry, Intact Wound/Incisions: Dressing Dry and Intact Neurological: No New Focal Deficit Psy/Mental Status: Alert, Normal Affect, Normal Mood - Problem List & Annotations (1) with 39 completed weeks gestation SNOMED Code(s): 14994204 Code(s): Z3A.39 - 39 WEEKS GESTATION OF Status: Acute Current Visit: Yes (2) Delivery by section SNOMED Code(s): 709575050 Code(s): FGM6784 - Status: Acute Current Visit: Yes (3) Language barrier SNOMED Code(s): 665156243, 377909090 Code(s): Z78.9 - OTHER SPECIFIED HEALTH STATUS Status: Acute Current Visit: Yes - Problem List Review Problem List Initiated/Reviewed/Updated: Yes - Plan Plan:: Continued monitoring Regular diet as tolerated assistance as needed Continue to assess for Lochia
[2019-04-08] MEDS: Acetaminophen/oxyCODONE 325-5 MG Tab PO PRN (22:09)
[2019-04-09] MEDS: Ibuprofen 600 MG Tab PO PRN ×2 (01:23→14:36)
[2019-04-09] MEDS ORDERED: Ammonia Inhalant Amp ONE (03:11)
[2019-04-09] MEDS: Acetaminophen/oxyCODONE 325-5 MG Tab PO PRN ×3 (05:08→22:04)
--- NOTE | 2019-04-09 08:00 | PCM.PNPP ---
- General Info Date of Service: 04/09/19 Admission Dx/Problem (Free Text): Patient Status Order with Admit Dx/Problem 04/07/19 17:30 Patient Status [ADT] Routine Admission Diagnosis/Problem Admission Diagnosis/Problem Subjective Update: Patient is day 1 post unplanned of a 39-1 gestational age male . Patient is doing well. She has been able to get up and walk around. Mendez catheter was removed and patient has been able to urinate, however the nurse reported output of about 150 mL. They did do a bladder scan, which did not demonstrate significant residual. She does say that she just went to the bathroom and it was a lot of urine. She has been drinking water. She has not yet had a bowel movement, but has been able to pass gas. Appetite has been good. Her pain has been well managed with medication. She has had minimal bleeding. She denies any headache or change in vision. She has continued to attempt to breastfeed, although she notes that her milk output has been minimal. She did discuss this with the nurse and received advice. Functional Status: Reports: Pain Controlled, Tolerating Diet, Ambulating, Urinating - Review of Systems General: Reports: No Symptoms HEENT: Reports: No Symptoms Pulmonary: Reports: No Symptoms Cardiovascular: Reports: No Symptoms Gastrointestinal: Reports: No Symptoms Genitourinary: Reports: No Symptoms Musculoskeletal: Reports: No Symptoms Skin: Reports: No Symptoms Psychiatric: Reports: No Symptoms - General Info Date of Service: 04/09/19 - Patient Data Vital Signs - Most Recent: Last Vital Signs Temp 98.8 F 04/09/19 04:08 Pulse 70 04/09/19 04:08 Resp 16 04/09/19 04:08 BP 102/51 L 04/09/19 04:08 Pulse Ox 98 04/09/19 04:08 Weight - Most Recent: 80.286 kg I&O - Last 24 Hours: Intake & Output 04/08/19 04/09/19 04/09/19 22:59 06:59 14:59 Intake Total 300 Balance 300 Lab Results - Last 24 Hours: Laboratory Results - last 24 hr 04/07/19 04/09/19 Range/Units 18:10 05:06 WBC 15.26 H (3.98-10.04) K/mm3 RBC 3.47 L (3.98-5.22) M/mm3 Hgb 10.5 L (11.2-15.7) gm/dl Hct 31.6 L (34.1-44.9) % MCV 91.1 (79.4-94.8) fl MCH 30.3 (25.6-32.2) pg MCHC 33.2 (32.2-35.5) g/dl RDW Std Deviation 43.3 (36.4-46.3) fL Plt Count 214 (182-369) K/mm3 MPV 10.0 (9.4-12.3) fl Neut % (Auto) 75.7 H (34.0-71.1) % Lymph % (Auto) 14.8 L (19.3-51.7) % [place] % (Auto) 8.5 (4.7-12.5) % Eos % (Auto) 0.3 L (0.7-5.8) Baso % (Auto) 0.2 (0.1-1.2) % Neut # (Auto) 11.54 H (1.56-6.13) K/mm3 Lymph # (Auto) 2.26 (1.18-3.74) K/mm3 [place] # (Auto) 1.30 H (0.24-0.36) K/mm3 Eos # (Auto) 0.05 (0.04-0.36) K/mm3 Baso # (Auto) 0.03 (0.01-0.08) K/mm3 RPR Non-reactive (NONREACTIVE) Med Orders - Current: Current Medications Diphenhydramine HCl (Benadryl) 25 mg IVPUSH Q6H PRN PRN Reason: Pruritis Diphenhydramine HCl (Benadryl) 25 mg IVPUSH Q6H PRN PRN Reason: Itching or Nausea Ephedrine Sulfate (Ephedrine Sulfate) 5 mg IVPUSH SEECOMMENT PRN PRN Reason: Other Fentanyl (Sublimaze) 50 mcg IVPUSH Q5M PRN PRN Reason: Pain Ibuprofen (Motrin) 600 mg PO Q6H PRN PRN Reason: mild pain or fever Last Admin: 04/09/19 01:23 Dose: 600 mg Naloxone HCl (Narcan) 0.1 mg IVPUSH SEECOMMENT PRN PRN Reason: Respiratory Depression Ondansetron HCl (Zofran) 4 mg IVPUSH ONETIME PRN PRN Reason: Nausea/Vomiting Oxycodone/Acetaminophen (Percocet 325-5 Mg) 2 tab PO Q6H PRN PRN Reason: Pain (moderate 4-6) Last Admin: 04/09/19 05:08 Dose: 2 tab Discontinued Medications Ammonia (Aromatic Spirit) (Ammonia Aromatic Inhalant) Confirm Administered Dose 1 ampule .ROUTE .STK-MED ONE Stop: 04/09/19 03:12 Bupivacaine HCl (Marcaine 0.5%) Confirm Administered Dose 30 ml .ROUTE .STK-MED ONE Stop: 04/08/19 00:55 Last Admin: 04/08/19 01:16 Dose: 20 ml Cefazolin Sodium (Ancef) Confirm Administered Dose 2 gm .ROUTE .STK-MED ONE Stop: 04/08/19 00:52 Citric Acid/Sodium Citrate (Bicitra Solution) 30 ml PO ONETIME ONE Stop: 04/08/19 00:47 Fentanyl (Sublimaze) Confirm Administered Dose 100 mcg .ROUTE .STK-MED ONE Stop: 04/08/19 01:43 Ampicillin Sodium 2 gm/ Sodium (Chloride) 100 mls @ 200 mls/hr IV ONETIME ONE Stop: 04/07/19 18:59 Last Admin: 04/07/19 19:02 Dose: 200 mls/hr Ampicillin Sodium 1 gm/ Sodium (Chloride) 100 mls @ 200 mls/hr IV Q4H [facility] Last Admin: 04/07/19 23:33 Dose: 200 mls/hr Lactated Ringer's (Ringers, Lactated) 1,000 mls @ 100 mls/hr IV ASDIRECTED [facility] Last Admin: 04/07/19 23:32 Dose: 100 mls/hr Oxytocin/Lactated Ringer's (Pitocin In Lr 10 Units/1,000 Ml) 10 unit in 1,000 mls @ 12 mls/hr IV TITRATE [facility]; Protocol Oxytocin/Lactated Ringer's (Pitocin In Lr 10 Units/1,000 Ml) 10 unit in 1,000 mls @ 500 mls/hr IV .CONTINUOUS [facility] Lactated Ringer's (Ringers, Lactated) Confirm Administered Dose 1,000 mls @ as directed .ROUTE .STK-MED ONE Stop: 04/07/19 18:12 Lactated Ringer's (Ringers, Lactated) 1,000 mls @ 125 mls/hr IV ASDIRECTED [facility] Dextrose/Lactated Ringer's (Dextrose 5%-Lactated Ringers) 1,000 mls @ 125 mls/ hr IV ASDIRECTED [facility] Stop: 04/08/19 13:13 Last Infusion: 04/08/19 12:34 Dose: Infused Ketorolac Tromethamine (Toradol) Confirm Administered Dose 30 mg .ROUTE .STK- MED ONE Stop: 04/08/19 10:08 Last Admin: 04/08/19 11:11 Dose: 30 mg Ketorolac Tromethamine (Toradol) Confirm Administered Dose 30 mg .ROUTE .STK- MED ONE Stop: 04/08/19 11:10 Last Admin: 04/08/19 11:16 Dose: Not Given Ketorolac Tromethamine (Toradol) Confirm Administered Dose 30 mg .ROUTE .STK- MED ONE Stop: 04/08/19 16:38 Last Admin: 04/09/19 01:25 Dose: Not Given Lidocaine HCl (Xylocaine 1%) 1 ml INJECT ONETIME ONE Stop: 04/07/19 17:50 Metoclopramide HCl (Reglan) 10 mg IVPUSH ONETIME ONE Stop: 04/08/19 00:47 Morphine Sulfate (Duramorph Pf) Confirm Administered Dose 10 mg .ROUTE .STK-MED ONE Stop: 04/08/19 00:48 Nalbuphine HCl (Nubain) 10 mg IVPUSH Q2H PRN PRN Reason: Pain Nalbuphine HCl (Nubain) 10 mg IVPUSH Q2H PRN PRN Reason: Pain Oxytocin (Pitocin) Confirm Administered Dose 20 unit .ROUTE .STK-MED ONE Stop: 04/08/19 00:52 Sodium Chloride (Saline Flush) 10 ml FLUSH ASDIRECTED PRN PRN Reason: Keep Vein Open Sodium Chloride (Saline Flush) 10 ml FLUSH ASDIRECTED PRN PRN Reason: Keep Vein Open Tranexamic Acid (Cyklokapron) Confirm Administered Dose 1,000 mg .ROUTE .STK- MED ONE Stop: 04/08/19 22:56 Last Admin: 04/09/19 00:57 Dose: Not Given - Infant Interaction Infant Disposition, : [place] to Nursery Infant Interaction: Not Applicable Feeding: Attempted ; Nursed Fair/Poor, Encouraged to Breastfeed Support Person: - Recovery Exam Fundal Tone: Firms with Massage Fundal Level: 1 Fingerbreadths Below Umbilicus Fundal Placement: Midline Lochia Amount: Small Lochia Color: Rubra/Red Perineum Description: Intact, Minimal Bruising/Swelling Episiotomy/Laceration: None Bladder Status: Voiding Urinary Elimination: Indwelling Catheter - Exam General: Alert, Oriented Lungs: Clear to Auscultation, Normal Respiratory Effort Cardiovascular: Regular Rate, Regular Rhythm GI/Abdominal Exam: Normal Bowel Sounds, Distended, Other (Some nodularity, likely consistent with stool) Extremities: Normal Inspection, Non-Tender, No Pedal Edema Skin: Warm, Dry, Intact Wound/Incisions: Dressing Dry and Intact Neurological: No New Focal Deficit Psy/Mental Status: Alert, Normal Affect, Normal Mood - Problem List & Annotations (1) with 39 completed weeks gestation SNOMED Code(s): 47993918 Code(s): Z3A.39 - 39 WEEKS GESTATION OF Status: Acute Current Visit: Yes (2) Delivery by section SNOMED Code(s): 486975147 Code(s): GQZ1834 - Status: Acute Current Visit: Yes (3) Language barrier SNOMED Code(s): 822076673, 622482910 Code(s): Z78.9 - OTHER SPECIFIED HEALTH STATUS Status: Acute Current Visit: Yes - Problem List Review Problem List Initiated/Reviewed/Updated: Yes - Plan Plan:: * Regular diet as tolerated * Vitals per unit routine * Continued monitoring * assistance as needed * Continue to assess for Lochia * Plan to discharge home tomorrow on post op day 2
[2019-04-09] MEDS ORDERED: Docusate Sodium 100 MG Cap PO PRN (08:26)
[2019-04-09] MEDS ORDERED: Acetaminophen/oxyCODONE 325-5 MG Tab PO PRN (15:16)
[2019-04-10] MEDS: Acetaminophen/oxyCODONE 325-5 MG Tab PO PRN (04:42)
--- NOTE | 2019-04-10 09:03 | PCM.PNPP ---
- General Info Date of Service: 04/10/19 Functional Status: Reports: Pain Controlled, Tolerating Diet, Ambulating, Urinating - Review of Systems General: Reports: No Symptoms Pulmonary: Reports: No Symptoms Cardiovascular: Reports: No Symptoms Gastrointestinal: Reports: Abdominal Pain (manged) Genitourinary: Reports: No Symptoms Musculoskeletal: Reports: No Symptoms - Patient Data Vital Signs - Most Recent: Last Vital Signs Temp 36.5 C 04/10/19 04:43 Pulse 80 04/10/19 04:43 Resp 16 04/09/19 21:00 BP 102/46 L 04/10/19 04:43 Pulse Ox 98 04/10/19 04:43 Weight - Most Recent: 80.286 kg Med Orders - Current: Current Medications Diphenhydramine HCl (Benadryl) 25 mg IVPUSH Q6H PRN PRN Reason: Pruritis Diphenhydramine HCl (Benadryl) 25 mg IVPUSH Q6H PRN PRN Reason: Itching or Nausea Docusate Sodium (Colace) 100 mg PO BID PRN PRN Reason: Constipation Last Admin: 04/09/19 09:10 Dose: 100 mg Ephedrine Sulfate (Ephedrine Sulfate) 5 mg IVPUSH SEECOMMENT PRN PRN Reason: Other Fentanyl (Sublimaze) 50 mcg IVPUSH Q5M PRN PRN Reason: Pain Ibuprofen (Motrin) 600 mg PO Q6H PRN PRN Reason: mild pain or fever Last Admin: 04/09/19 14:36 Dose: 600 mg Naloxone HCl (Narcan) 0.1 mg IVPUSH SEECOMMENT PRN PRN Reason: Respiratory Depression Ondansetron HCl (Zofran) 4 mg IVPUSH ONETIME PRN PRN Reason: Nausea/Vomiting Oxycodone/Acetaminophen (Percocet 325-5 Mg) 2 tab PO Q6H PRN PRN Reason: Pain (severe 7-10) Last Admin: 04/10/19 04:42 Dose: 2 tab Oxycodone/Acetaminophen (Percocet 325-5 Mg) 1 tab PO Q6H PRN PRN Reason: Pain (moderate 4-6) Discontinued Medications Ammonia (Aromatic Spirit) (Ammonia Aromatic Inhalant) Confirm Administered Dose 1 ampule .ROUTE .STK-MED ONE Stop: 04/09/19 03:12 Last Admin: 04/09/19 08:27 Dose: Not Given Bupivacaine HCl (Marcaine 0.5%) Confirm Administered Dose 30 ml .ROUTE .[facility] ONE Stop: 04/08/19 00:55 Last Admin: 04/08/19 01:16 Dose: 20 ml Cefazolin Sodium (Ancef) Confirm Administered Dose 2 gm .ROUTE .[facility] ONE Stop: 04/08/19 00:52 Citric Acid/Sodium Citrate (Bicitra Solution) 30 ml PO ONETIME ONE Stop: 04/08/19 00:47 Fentanyl (Sublimaze) Confirm Administered Dose 100 mcg .ROUTE .[facility] ONE Stop: 04/08/19 01:43 Ampicillin Sodium 2 gm/ Sodium (Chloride) 100 mls @ 200 mls/hr IV ONETIME ONE Stop: 04/07/19 18:59 Last Admin: 04/07/19 19:02 Dose: 200 mls/hr Ampicillin Sodium 1 gm/ Sodium (Chloride) 100 mls @ 200 mls/hr IV Q4H [facility] Last Admin: 04/07/19 23:33 Dose: 200 mls/hr Lactated Ringer's (Ringers, Lactated) 1,000 mls @ 100 mls/hr IV ASDIRECTED [facility] Last Admin: 04/07/19 23:32 Dose: 100 mls/hr Oxytocin/Lactated Ringer's (Pitocin In Lr 10 Units/1,000 Ml) 10 unit in 1,000 mls @ 12 mls/hr IV TITRATE [facility]; Protocol Oxytocin/Lactated Ringer's (Pitocin In Lr 10 Units/1,000 Ml) 10 unit in 1,000 mls @ 500 mls/hr IV .CONTINUOUS [facility] Lactated Ringer's (Ringers, Lactated) Confirm Administered Dose 1,000 mls @ as directed .ROUTE .STK-MED ONE Stop: 04/07/19 18:12 Lactated Ringer's (Ringers, Lactated) 1,000 mls @ 125 mls/hr IV ASDIRECTED [facility] Dextrose/Lactated Ringer's (Dextrose 5%-Lactated Ringers) 1,000 mls @ 125 mls/ hr IV ASDIRECTED [facility] Stop: 04/08/19 13:13 Last Infusion: 04/08/19 12:34 Dose: Infused Ketorolac Tromethamine (Toradol) Confirm Administered Dose 30 mg .ROUTE .STK- MED ONE Stop: 04/08/19 10:08 Last Admin: 04/08/19 11:11 Dose: 30 mg Ketorolac Tromethamine (Toradol) Confirm Administered Dose 30 mg .ROUTE .STK- MED ONE Stop: 04/08/19 11:10 Last Admin: 04/08/19 11:16 Dose: Not Given Ketorolac Tromethamine (Toradol) Confirm Administered Dose 30 mg .ROUTE .STK- MED ONE Stop: 04/08/19 16:38 Last Admin: 04/09/19 01:25 Dose: Not Given Lidocaine HCl (Xylocaine 1%) 1 ml INJECT ONETIME ONE Stop: 04/07/19 17:50 Metoclopramide HCl (Reglan) 10 mg IVPUSH ONETIME ONE Stop: 04/08/19 00:47 Morphine Sulfate (Duramorph Pf) Confirm Administered Dose 10 mg .ROUTE .STK-MED ONE Stop: 04/08/19 00:48 Nalbuphine HCl (Nubain) 10 mg IVPUSH Q2H PRN PRN Reason: Pain Nalbuphine HCl (Nubain) 10 mg IVPUSH Q2H PRN PRN Reason: Pain Oxytocin (Pitocin) Confirm Administered Dose 20 unit .ROUTE .STK-MED ONE Stop: 04/08/19 00:52 Sodium Chloride (Saline Flush) 10 ml FLUSH ASDIRECTED PRN PRN Reason: Keep Vein Open Sodium Chloride (Saline Flush) 10 ml FLUSH ASDIRECTED PRN PRN Reason: Keep Vein Open Tranexamic Acid (Cyklokapron) Confirm Administered Dose 1,000 mg .ROUTE .STK- MED ONE Stop: 04/08/19 22:56 Last Admin: 04/09/19 00:57 Dose: Not Given - Interaction Infant Disposition, : [place] to Nursery Interaction: Not Applicable Feeding: Attempted ; Nursed Fair/Poor, Encouraged to Breastfeed Support Person: - Recovery Exam Fundal Tone: Firm Fundal Level: At Umbilicus Fundal Placement: Midline Lochia Amount: Small Lochia Color: Rubra/Red Perineum Description: Intact, Minimal Bruising/Swelling Episiotomy/Laceration: None Bladder Status: Voiding Urinary Elimination: Voided - Exam General: Alert, Oriented, Cooperative Lungs: Clear to Auscultation, Normal Respiratory Effort Cardiovascular: Regular Rate, Regular Rhythm GI/Abdominal Exam: Soft, Tender (appropriate post op ) Extremities: Normal Inspection Skin: Warm, Dry, Intact Wound/Incisions: Healing Well, No Drainage - Problem List & Annotations (1) with 39 completed weeks gestation SNOMED Code(s): 32662439 Code(s): Z3A.39 - 39 WEEKS GESTATION OF Status: Acute Current Visit: Yes (2) Delivery by section SNOMED Code(s): 247858874 Code(s): MBJ4800 - Status: Acute Current Visit: Yes - Problem List Review Problem List Initiated/Reviewed/Updated: Yes - My Orders Last 24 Hours: My Active Orders 04/10/19 09:03 Ready for Discharge [RC] PER UNIT ROUTINE - Assessment Assessment:: POD#2 - Plan Plan:: S/p PLTCS * Routine cares * Breast feeding * Patient self pay. Will discharge from hospital system today, but patient will be staying in the hospital with her baby who will require several more days of IV antibiotics. Rx previously sent. Patient's son will picker for her today
--- NOTE | 2019-04-10 09:04 | PCM.DCSUM1 ---
Discharge Summary - Discharge Data Discharge Date: 04/10/19 Discharge Disposition: Home, Self-Care 01 Condition: Good - Referral to Home Health Primary Care Physician: Jennifer Vang MD - Patient Summary/Data Operative Procedure(s) Performed: primary section Complications: None Consults: None Recommended Follow-up Testing/Procedures: Follow up in 1 week for incision check Hospital Course: 44 y/o presented at 39 1/7 wks with bleeding. Was augmented with AROM , but noted to have thick meconium fluid and repetitive late decelerations. For this reason was taken for . Procedure uncomplicated. See operative note. was discharged on POD#2 - Patient Instructions Diet: Regular Diet as Tolerated Activity: No Lifting Over 10 Pounds Activity, Other: Pelvic rest for 6 weeks Driving: Do Not Drive (While taking narcotics ) Showering/Bathing: May Shower, No Tub Bathing/Swimming Wound/Incision Care: Keep Operative Site/Wound Site Clean and Dry Notify Provider of: Fever, Increased Pain, Swelling and Redness, Drainage, Nausea and/or Vomiting - Discharge Plan *PRESCRIPTION DRUG MONITORING PROGRAM REVIEWED*: No *COPY OF PRESCRIPTION DRUG MONITORING REPORT IN PATIENT MARIA ALEJANDRA: No Prescriptions/Med Rec: Acetaminophen/oxyCODONE [Percocet 325-5 MG] 1 tab PO Q6H PRN #40 tablet PRN Reason: Pain (Moderate 4-6) Home Medications: Home Meds Mv-Mn/Iron/FA/Herbal/Digestive [ One Tablet] 1 each PO DAILY 04/07/19 [ History] Acetaminophen/oxyCODONE [Percocet 325-5 MG] 1 tab PO Q6H PRN #40 tablet [Rx] Docusate Sodium [Colace] 100 mg PO BID PRN cap 04/10/19 [Rx] Ibuprofen [Motrin] 600 mg PO Q6H PRN tablet 04/10/19 [Rx] Patient Handouts: Delivery, Care After Referrals: Jennifer Vang MD [Primary Care Provider] - (1 week for incision check ) - Discharge Summary/Plan Comment DC Time >30 min.: No - Patient Data Vitals - Most Recent: Last Vital Signs Temp 36.5 C 04/10/19 04:43 Pulse 80 04/10/19 04:43 Resp 16 04/09/19 21:00 BP 102/46 L 04/10/19 04:43 Pulse Ox 98 04/10/19 04:43 Weight - Most Recent: 80.286 kg Med Orders - Current: Current Medications Diphenhydramine HCl (Benadryl) 25 mg IVPUSH Q6H PRN PRN Reason: Pruritis Diphenhydramine HCl (Benadryl) 25 mg IVPUSH Q6H PRN PRN Reason: Itching or Nausea Docusate Sodium (Colace) 100 mg PO BID PRN PRN Reason: Constipation Last Admin: 04/09/19 09:10 Dose: 100 mg Ephedrine Sulfate (Ephedrine Sulfate) 5 mg IVPUSH SEECOMMENT PRN PRN Reason: Other Fentanyl (Sublimaze) 50 mcg IVPUSH Q5M PRN PRN Reason: Pain Ibuprofen (Motrin) 600 mg PO Q6H PRN PRN Reason: mild pain or fever Last Admin: 04/09/19 14:36 Dose: 600 mg Naloxone HCl (Narcan) 0.1 mg IVPUSH SEECOMMENT PRN PRN Reason: Respiratory Depression Ondansetron HCl (Zofran) 4 mg IVPUSH ONETIME PRN PRN Reason: Nausea/Vomiting Oxycodone/Acetaminophen (Percocet 325-5 Mg) 2 tab PO Q6H PRN PRN Reason: Pain (severe 7-10) Last Admin: 04/10/19 04:42 Dose: 2 tab Oxycodone/Acetaminophen (Percocet 325-5 Mg) 1 tab PO Q6H PRN PRN Reason: Pain (moderate 4-6) Discontinued Medications Ammonia (Aromatic Spirit) (Ammonia Aromatic Inhalant) Confirm Administered Dose 1 ampule .ROUTE .STK-MED ONE Stop: 04/09/19 03:12 Last Admin: 04/09/19 08:27 Dose: Not Given Bupivacaine HCl (Marcaine 0.5%) Confirm Administered Dose 30 ml .ROUTE .STK-MED ONE Stop: 04/08/19 00:55 Last Admin: 04/08/19 01:16 Dose: 20 ml Cefazolin Sodium (Ancef) Confirm Administered Dose 2 gm .ROUTE .STK-MED ONE Stop: 04/08/19 00:52 Citric Acid/Sodium Citrate (Bicitra Solution) 30 ml PO ONETIME ONE Stop: 04/08/19 00:47 Fentanyl (Sublimaze) Confirm Administered Dose 100 mcg .ROUTE .STK-MED ONE Stop: 04/08/19 01:43 Ampicillin Sodium 2 gm/ Sodium (Chloride) 100 mls @ 200 mls/hr IV ONETIME ONE Stop: 04/07/19 18:59 Last Admin: 04/07/19 19:02 Dose: 200 mls/hr Ampicillin Sodium 1 gm/ Sodium (Chloride) 100 mls @ 200 mls/hr IV Q4H BR[facility] Last Admin: 04/07/19 23:33 Dose: 200 mls/hr Lactated Ringer's (Ringers, Lactated) 1,000 mls @ 100 mls/hr IV ASDIRECTED [facility] Last Admin: 04/07/19 23:32 Dose: 100 mls/hr Oxytocin/Lactated Ringer's (Pitocin In Lr 10 Units/1,000 Ml) 10 unit in 1,000 mls @ 12 mls/hr IV TITRATE BR[facility]NEY; Protocol Oxytocin/Lactated Ringer's (Pitocin In Lr 10 Units/1,000 Ml) 10 unit in 1,000 mls @ 500 mls/hr IV .CONTINUOUS BRINTEY Lactated Ringer's (Ringers, Lactated) Confirm Administered Dose 1,000 mls @ as directed .ROUTE .STK-MED ONE Stop: 04/07/19 18:12 Lactated Ringer's (Ringers, Lactated) 1,000 mls @ 125 mls/hr IV ASDIRECTED [place] Dextrose/Lactated Ringer's (Dextrose 5%-Lactated Ringers) 1,000 mls @ 125 mls/ hr IV ASDIRECTED [place]NEY Stop: 04/08/19 13:13 Last Infusion: 04/08/19 12:34 Dose: Infused Ketorolac Tromethamine (Toradol) Confirm Administered Dose 30 mg .ROUTE .STK- MED ONE Stop: 04/08/19 10:08 Last Admin: 04/08/19 11:11 Dose: 30 mg Ketorolac Tromethamine (Toradol) Confirm Administered Dose 30 mg .ROUTE .STK- MED ONE Stop: 04/08/19 11:10 Last Admin: 04/08/19 11:16 Dose: Not Given Ketorolac Tromethamine (Toradol) Confirm Administered Dose 30 mg .ROUTE .STK- MED ONE Stop: 04/08/19 16:38 Last Admin: 04/09/19 01:25 Dose: Not Given Lidocaine HCl (Xylocaine 1%) 1 ml INJECT ONETIME ONE Stop: 04/07/19 17:50 Metoclopramide HCl (Reglan) 10 mg IVPUSH ONETIME ONE Stop: 04/08/19 00:47 Morphine Sulfate (Duramorph Pf) Confirm Administered Dose 10 mg .ROUTE .STK-MED ONE Stop: 04/08/19 00:48 Nalbuphine HCl (Nubain) 10 mg IVPUSH Q2H PRN PRN Reason: Pain Nalbuphine HCl (Nubain) 10 mg IVPUSH Q2H PRN PRN Reason: Pain Oxytocin (Pitocin) Confirm Administered Dose 20 unit .ROUTE .STK-MED ONE Stop: 04/08/19 00:52 Sodium Chloride (Saline Flush) 10 ml FLUSH ASDIRECTED PRN PRN Reason: Keep Vein Open Sodium Chloride (Saline Flush) 10 ml FLUSH ASDIRECTED PRN PRN Reason: Keep Vein Open Tranexamic Acid (Cyklokapron) Confirm Administered Dose 1,000 mg .ROUTE .STNewsBasis- MED ONE Stop: 04/08/19 22:56 Last Admin: 04/09/19 00:57 Dose: Not Given
--- NOTE | 2019-04-12 06:34 | US ---
Limited obstetrical ultrasound: Multiple real-time images were obtained transabdominally. Comparison: No previous obstetrical imaging. Dates: Current ultrasound: AGGIE 04/18/19, gestational age 38 weeks 3 days presentation: Cephalic Placenta: Anterior with no findings of placenta previa Amniotic fluid: MONO 14.0 cm Measurements: BPD: 9.12 cm - 37 weeks 0 days Head circumference: 34.19 cm - 39 weeks 3 days Abdominal circumference: 34.78 cm - 38 weeks 5 days Femur length: 7.45 cm - 38 weeks 1 day Estimated weight: 3489 g (7 lbs. 11 oz.), estimated weight 65th percentile for age by current ultrasound Heart rate: 146 bpm Cervical length: 4.9 cm Impression: 1. Single intrauterine fetus currently cephalic in presentation. Dates as noted above. 2. No findings of placenta previa. 3. No complicating process is seen at this time by ultrasound exam. Diagnostic code #1 This report was dictated in [place] Standard Time I agree with preliminary report from [facility], finalized on 04/07/19, 11:58 PM Central Time
== END 2019-04-10 14:45 | disposition home or self-care (01) | DRG 788 ==
LOC: JD.OBCHECK 16:55 → JD.OB 16:55 → JD.OBCHECK 17:30 → JD.OB 22:46 → OBSVTOIN 04-08 01:20 → JD.OB 04-08 01:24
PROVIDERS: ADMIT Obstetrics & Gynecology; ATTEND Obstetrics & Gynecology
PROC: 10D00Z1 Extraction of Products of Conception, Low, Open Approach (ICD-10-PCS; principal; 2019-04-08)
PROC: 10907ZC Drainage of Amniotic Fluid, Therapeutic from Products of Conception, Via Natural or Artificial Opening (ICD-10-PCS; 2019-04-08)
DX: O77.0 Labor and delivery complicated by meconium in amniotic fluid (principal); O99.824 Streptococcus B carrier state complicating childbirth; O76 Abnormality in fetal heart rate and rhythm complicating labor and delivery; Z3A.39 39 weeks gestation of pregnancy; Z37.0 Single live birth
CPT/HCPCS: 01961; 36415; 59025; 76815; 76815-26; 85025; 86592; 86850; 86900; 86901; A9270-GY; J0290; J0690; J1885; J2270; J2590; J3010; J3490; J7042; J7050; J7120